=== PATIENT | female | born 1945 | race Caucasian/White ===

== ENCOUNTER 2018-07-31 12:49 | Emergency (ER) | payer OTHER ==
[~2018-07-31] VITALS: Ht 165.1 cm; Wt 88.0 kg
[~2018-07-31 12:49] MED LIST: ALEVE220 MG PO; ASPIRIN325 MG PO; AZITHROMYCIN250 MG PO; COCONUT OIL1000 MG PO; ETODOLAC500 MG PO; FENOFIBRATE145 MG PO; FISH OIL 1,0001 EAC2 PO; HEMOCYTE PLUS1 EACH; LEVOTHYROXINE125 MCG PO; LOVASTATIN20 MG PO; METFORMIN HCL500 MG PO; MONTELUKAST SOD10 MG PO; NAPROXEN250 MG PO; NORCO 10-325 T1 EACH PO; OMEPRAZOLE40 MG PO
--- OUTSIDE RECORDS SUMMARY | 2018-07-31 13:57 | XMS REPORT ---
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 Allergies, Adverse Reactions, Alerts This patient has no known allergies or adverse reactions. Medications This patient has no known medications. Results Test Description Test Time Test Comments Text Results Atomic Results Result Comments SCR MAMM BILATERAL NOEMI CAD DIGITAL 2018-07-04 13:38:10 - SCR MAMM BILATERAL NEOMI CAD DIGITALBILATERAL DIGITAL SCREENING MAMMOGRAM 3D/2D WITH CAD: 07/04/2018CLINICAL: Asymptomatic. Digital breast tomosynthesis was performed in addition to routine CC and MLO views. Current mammographic images were evaluated by either a [employer] M-Vu or a [employer] ImageChecker CAD (computer aided detection system). Comparison is made to exams dated 03/14/2017 mammogram, 12/14 mammogram, and 12/02/2014 mammogram - [facility]. The tissue of both breasts is predominantly fatty. No suspicious mass, architectural distortion, malignant type calcification, or lymph node abnormality detected. Breast architecture is stable compared to prior exams.IMPRESSION: NEGATIVEThere is no mammographic evidence of malignancy. Resume annual screening mammography in one year. Alok Thapa M.D. qn/penrad:07/04/2018 13:38:10 Manager Data Center: [place], [facility] sent: BIRADS 1-2 Normal Mammogram BI-RADS: 1 Negative CHEST [address] [address] Patient Name: TANYA WILSON MR #: [id number] : 1945 Age/Sex: 71/F Req #: [id number] Adm Physician: Ordered by: PING VERGARA DPM Report #: [id number] Location: OR Room/Bed: Procedure: [id number] DX/CHEST 2 VIEWS Exam Date: 01/14/17 Exam Time: 1600 REPORT STATUS: Signed PROCEDURE: X-RAY CHEST, TWO VIEWS COMPARISON: None. INDICATIONS: PRE OP FINDINGS: Lungs are well-inflated. No focal consolidation, pleural effusion, or pneumothorax. Biapical pleural-parenchymal scar. Post surgical changes of the mediastinum including median sternotomy wires and mediastinal surgical clips. Enlargement of the cardiac silhouette without vascular decompensation. No acute osseous abnormality. Multilevel degenerative disc changes of the thoracic spine. CONCLUSION: Cardiomegaly without vascular decompensation. Dictated by: Kiley Hills M.D. on 01/14/2017 at 17:35 Electronically approved by: Kiley Hills M.D. on 01/14/2017 at 17:35 Dictated By: KILEY HILLS MD [id number] Transcribed By: JUAN R on 01/14/17 1735 COPY TO: PING VERGARA DPM
[2018-07-31] MEDS ORDERED: TETANUS/DIPHTHERIA TOX ADULT 0.5 ML SYR IM ONE (14:30)
--- NOTE | 2018-07-31 15:00 | NUR ---
PT TO ER ROOM 7 AT THIS TIME, ASSUMED CARE AT THIS TIME.
--- NOTE | 2018-07-31 15:52 | Diagnostic Imaging Report ---
Exam: Forearm 2 views History: Pain Comparison: None. Findings: Intraarticular fracture of the distal radius predominantly involving the radial styloid. Soft tissue swelling. Advanced arthropathy of the first CMC and triscaphe joint. Impression: Intra-articular fracture of the distal radius Signed by: Dr. Jas Roberts M.D. on 07/31/2018 3:48 PM
--- NOTE | 2018-07-31 16:20 | Diagnostic Imaging Report ---
Complete set of images made available for interpretation on 07/31/2018 at 4:10 PM. EXAMINATION: Head and cervical spine CT without contrast. HISTORY: Status post fall this morning, trauma. COMPARISON: None. TECHNIQUE: Multidetector axial images were obtained without contrast from the foramen magnum to the vertex and through the cervical spine. The images were reconstructed using brain and bone algorithms. Thin section brain images were reformatted into coronal and sagittal planes. Dose modulation, iterative reconstruction, and/or weight based adjustment of the mA/kV was utilized to reduce the radiation dose to as low as reasonably achievable. HEAD CT FINDINGS: Skull/difficult/: No lytic or blastic lesions. No fractures. Parenchyma: Normal. No mass, hemorrhage or CT evidence of acute vascular insult. Brain volume: Normal for age. Ventricles: No hydrocephalus or displacement. Arteries: No density suggestive of thrombus. Dural sinuses: No abnormal density. Extra-axial spaces: No abnormal density. Incidentally noted approximately 3.4 cm transverse x 1.5 cm AP diameter well-circumscribed benign-appearing arachnoid cyst posterior to the right occipital lobe without associated significant mass effect or abnormal density in the brain parenchyma. Foramen magnum: No mass, Chiari malformation, or basilar invagination. Sella: No obvious mass. FACE CT FINDINGS: Bones: Severe atrophy of the maxilla due to edentulism. Facial soft tissues: No acute abnormalities Paranasal sinuses and drainage pathways: The frontal, ethmoidal, sphenoid and maxillary sinuses are clear. The ostiomeatal units, fronto-nasal and spheno-ethmoidal recesses are clear. Orbits contents: Minimal scleral calcification along the posterior globes. Nasal septum: Midline. Anatomic variations: No significant anatomic variations. CERVICAL SPINE CT FINDINGS: Alignment:Reversal of the cervical lordosis with kyphotic malalignment from C3 to C5. Minimal anterolisthesis at C2-C3. S-shaped scoliosis. Soft tissues: Normal. Vertebrae: Normal height and density. No acute fracture, infection or neoplasm. Chronic endplate degenerative changes from C3 to C7. Degenerative changes: C1-C2: Normal C2-C3: Prominent facet arthrosis on the left without significant stenosis. C3-C4: Asymmetric to the right disc osteophyte complex formation is, bilateral uncovertebral and facet arthrosis. Severe right and mild left foraminal stenosis. C4-C5: Asymmetric to the right disc osteophyte complex formation, uncovertebral and facet arthrosis. Severe right and moderate left foraminal stenosis. Mild canal stenosis. C5-C6: Asymmetric to the right disc osteophyte formation, uncovertebral and facet arthrosis. Severe right and moderate left foraminal stenosis. Moderate canal stenosis. C6-C7: There is costophrenic reformation, bilateral uncovertebral and facet arthrosis. Moderate spinal canal and bilateral foraminal stenosis. C7-T1: Prominent facet arthrosis without significant stenosis. Incidental findings: Partially visualized pleural-parenchymal scarring mainly in the right lung apex. IMPRESSION: Head CT: No acute posttraumatic intracranial abnormalities, particularly no hemorrhage. Face CT: No acute facial fractures. Cervical spine CT: 1. No acute fractures or dislocations. 2. Chronic degenerative changes as described. Note: Acute post traumatic spinal cord, vascular or ligamentous injury cannot adequately be assessed with CT. Signed by: Dr. Isabel Tillman M.D. on 07/31/2018 4:16 PM
== END 2018-07-31 18:32 | disposition home or self-care (01) ==
LOC: ER 12:49
DX: S00.83XA Contusion of other part of head, initial encounter (principal); S52.571A Other intraarticular fracture of lower end of right radius, initial encounter for closed fracture; S00.31XA Abrasion of nose, initial encounter; W01.0XXA Fall on same level from slipping, tripping and stumbling without subsequent striking against object, initial encounter; Y92.008 Other place in unspecified non-institutional (private) residence as the place of occurrence of the external cause
CPT/HCPCS: 70450; 70486; 72125; 90471; 90714; 99284

== ENCOUNTER 2019-12-01 14:24 | Emergency (ER) | payer OTHER ==
[~2019-12-01] VITALS: Ht 165.1 cm; Wt 88.0 kg
--- NOTE | 2019-12-01 14:50 | Emergency Department Note ---
History of Present Illnes History of Present Illness Chief Complaint: General Medicine Complaints History of Present Illness This is a 74 year old female Chief Complaint Comment BACK PAIN AND PAIN WTIH URINATION. PT WALKS WITH WALKER. E COLI IN THE URINE; PLACED ON CIPRO AND SWITCHED YESTERDAY TO BACTRIM. PT AWAKE/ALERT. DECREASED URINE OUTPT. BP 180/116'S; POTASSIUM RAN HIGH ON LAST LABS AND TSH HIGH. Historian: Patient, Family Member Arrival Mode: Car Secondary English Teacher Required: No Onset (how long ago): week(s) (1) Location: All over Quality: Doesn't feel well Radiation: Reports other (All over) Severity: mild Onset quality: gradual Duration (how long): week(s) (1) Timing of current episode: constant Progression: unchanged Chronicity: new Context: Reports recent illness (UTI) Relieving factors: none Exacerbating factors: none Associated symptoms: Reports denies other symptoms Treatments prior to arrival: none Past Medical/Family History Physician Review I have reviewed the patient's past medical and family history. Any updates have been documented here. Past Medical History Recent Fever: No Clinical Suspicion of Infectio: No New/Unexplained Change in Ment: No Past Medical History: Diabetes, Hypothyroidism, CAD, GERD, Hyperlipedemia Other Medical History: hyperlipidemia Past Surgical History: Appendectomy, CABG, T&A, Tubal Ligation Other Surgery: AMPUTATED L 4TH AND 5TH TOES 01/18/2017 right knee TRIPPLE BYPASS Other Last Tetanus: UNKNOWN Review of Systems Review of Systems Constitutional: Reports no symptoms, Reports other ("Feels like shit") EENTM: Reports no symptoms Cardiovascular: Reports no symptoms, Reports edema (BLE) Respiratory: Reports no symptoms Gastrointestinal: Reports no symptoms Genitourinary: Reports as per HPI, Reports frequency Musculoskeletal: Reports no symptoms Integumentary: Reports no symptoms Neurological: Reports no symptoms Psychological: Reports no symptoms Endocrine: Reports no symptoms Hematological/Lymphatic: Reports no symptoms Physical Exam Related Data Allergies: Coded Allergies: Penicillins (Verified Allergy, Unknown, UNKNOWN, 03/20/10) erythromycin base (Verified Allergy, Unknown, UNKNOWN, 03/20/10) Triage Vital Signs Vital Signs Date Time Temp Pulse Resp B/P (MAP) Pulse Ox O2 Delivery O2 Flow Rate FiO2 12/01/19 14:36 98.4 96 16 172/84 98 Room Air Vital signs reviewed: Yes Physical Exam CONSTITUTIONAL Constitutional: Present well-developed, Present well-nourished HENT HENT: Present normocephalic, Present atraumatic, Present oropharynx clear/moist, Present nose normal HENT L/R: Present left ext ear normal, Present right ext ear normal EYES Eyes: Reports PERRL, Reports conjunctivae normal NECK Neck: Present ROM normal PULMONARY Pulmonary: Present effort normal, Present breath sounds normal CARDIOVASCULAR Cardiovascular: Present regular rhythm, Present heart sounds normal, Present capillary refill normal, Present normal rate GASTROINTESTINAL Abdominal: Present soft, Present nontender, Present bowel sounds normal GENITOURINARY Genitourinary: Present exam deferred SKIN Skin: Present warm, Present dry MUSCULOSKELETAL Musculoskeletal: Present ROM normal NEUROLOGICAL Neurological: Present alert, Present oriented x 3, Present no gross motor or sensory deficits PSYCHOLOGICAL Psychological: Present mood/affect normal, Present judgement normal Procedures 12 Lead ECG Interpretation ECG Interpretation : Secondary English Teacher: Interpreted by ED physician Date: Dec 02, 2019 Rhythm: atrial fibrillation Rate: normal BPM: 99 QRS axis: normal ST segments normal: Yes T waves normal: Yes Clinical Impression: dysrhythmia - atrial Assessment & Plan Medical Decision Making MDM 74-year-old female with a recent urinary tract infection presents for evaluation of multiple things including electrolytes and thyroid as well as urinary tract infection. Patient was told to come to the emergency department by Dr. Whalen's office. Examination shows overall well-appearing 74 year old female in no acute distress. Vital signs stable, within acceptable limits. Workup shows urinary tract infection. I discussed the patient with Dr. Whalen and he prefers to continue outpatient treatment of her urinary tract infection and follow-up in clinic. At this time patient will not require admission and no signs to suggest sepsis or end organ dysfunction. Patient is appropriate for discharge. Will hold on anticoagulation for a-fib given current infection likely causing and unknown start of a-fib. Decision to anticoagulate deferred to primary doctor at follow up appointment due to moderate risk of bleeding. Reassessment Reassessment time: 16:36 Reassessment Well appearing, NAD Assessment & Plan Final Impression: (1) UTI (urinary tract infection) Depart Disposition: HOME, SELF-CARE Last Vital Signs Date Time Temp Pulse Resp B/P (MAP) Pulse Ox O2 Delivery O2 Flow Rate FiO2 12/01/19 14:36 98.4 96 16 172/84 98 Room Air Home Meds Reported Medications Fe Fumarate/Fa/Mv, Min Comb#15 (HEMOCYTE PLUS CAPSULE) 1 Each Capsule, TID 01/19/17 Hydrocodone Bit/Acetaminophen (NORCO 10-325 TABLET) 1 Each Tablet, 1 TAB PO Q4HR PRN for PAIN 01/18/17 Azithromycin (Z-TREVIN) 250 Mg Tablet, 250 MG PO DAILY, #1 UDPKT Z-Pack 01/18/17 Naproxen (NAPROXEN) 250 Mg Tablet, 500 MG PO BIDWM PRN for PAIN, TAB 01/18/17 Montelukast Sodium (MONTELUKAST SODIUM) 10 Mg Tablet, 10 MG PO DAILY, #30 TAB 05/15/16 Lovastatin (LOVASTATIN) 20 Mg Tablet, 20 MG PO DAILY 05/15/16 Levothyroxine Sodium (LEVOTHYROXINE SODIUM) 125 Mcg Tablet, 125 MCG PO DAILY 05/15/16 Fenofibrate Nanocrystallized (FENOFIBRATE) 145 Mg Tablet, 160 MG PO DAILY 05/15/16 Metformin Hcl (METFORMIN HCL) 500 Mg Tablet, 1000 MG PO BID, #60 TAB 05/15/16 Omeprazole (OMEPRAZOLE) 40 Mg Capsule.dr, 40 MG PO DAILY 05/15/16 Etodolac (ETODOLAC) 500 Mg Tablet, 500 MG PO DAILY 05/15/16 Coconut Oil (COCONUT OIL) 1,000 Mg Capsule, 1000 MG PO DAILY 05/15/16 Lucan-3 Fatty Acids/Fish Oil (FISH OIL 1,000 MG CAPSULE) 1 Each Capsule, 1000 MG PO DAILY 05/15/16 FADIA WEISS MD Dec 01, 2019 14:50
[2019-12-01 15:04] LABS: BASOPHILS % 0.4 % (0.0-1.0); EOSINOPHILS % 0.3 % (0.0-6.0); HEMATOCRIT 36.4 % (34.2-44.1); HEMOGLOBIN 10.5 g/dL (12.0-16.0); LYMPHOCYTES # (AUTO) 1.4 (1.0-3.2); LYMPHOCYTES % 12.2 % (18.0-39.1); MEAN CORPUSCULAR HEMOGLOBIN 23.4 pg (28-32); MEAN CORPUSCULAR HGB CONC 28.8 g/dL (31-35); MEAN CORPUSCULAR VOLUME 81.1 fL (81-99); MONOCYTES # (AUTO) 0.7 (0.2-0.8); NEUTROPHILS % 80.3 % (38.7-80.0); PLATELET COUNT 583 x10e3/uL (140-360); RED BLOOD COUNT 4.49 x10e6/uL (3.6-5.1); RED CELL DISTRIBUTION WIDTH 17.9 % (11.7-14.4)
[2019-12-01 15:30] LABS: ALBUMIN 3.7 g/dL (3.5-5.0); ALBUMIN/GLOBULIN RATIO 0.9 (0.8-2.0); ANION GAP 18.6 mmol/L (8-16); CALCIUM 10.3 mg/dL (8.4-10.2); CREATININE, SERUM 1.19 mg/dL (0.57-1.11); POTASSIUM 4.6 mmol/L (3.5-5.1)
[2019-12-01 15:46] LABS: THYROID STIMULATING HORMONE 3.056 uIU/mL (0.350-4.940)
--- NOTE | 2019-12-01 16:07 | NUR ---
straight cath for a urine
--- OUTSIDE RECORDS SUMMARY | 2019-12-01 16:15 | XMS REPORT | Continuity of Care Document ---
Author Author [facility] Organization [facility] Address [address] [place] [address] Phone Unavailable Care Team Providers [employer] Teacher Name Role Phone Fran NEUMANN MD PCP Fran KING Attphys Unavailable PING VERGARA Attphys Unavailable Payers Payer Name Policy Type Policy Number Effective Date Expiration Date Fran Cummings [id number] 2018 00:00:00 [facility] Problems Condition Name Condition Details Condition Category Status Onset Date Resolution Date Last Treatment Date Treating Clinician Comments Source Postoperative hemorrhage from incision Postoperative bleedin g from incision Problem Active [facility] Allergies, Adverse Reactions, Alerts Allergy Name Allergy Type Status Severity Reaction(s) Onset Date Inacti ve Date Treating Clinician Comments Source Penicillin Allergy to Substance Active UNKNOWN 2010-03-20 00:00:00 [facility] Erythromycin base Allergy to Substance Active UNKNOWN 00:00:00 [facility] Medications Ordered Medication Name Filled Medication Name Start Date Stop Da te Current Medication? Ordering Clinician Indication Dosage Frequency Signature (SIG) Comments Components Source Azithromycin (Z-Milo) 250 Mg Tablet Azithromycin (Z-Milo) 250 Mg Tablet Yes 250 Daily [facility] Coconut Oil 1,000 Mg Capsule Coconut Oil 1,000 Mg Capsule Y es 1000 Daily [facility] Etodolac 500 Mg Tablet Etodolac 500 Mg Tablet Yes 500 Daily [facility] Fe Fumarate/Fa/Mv, Min Comb#15 (Hemocyte Plus Capsule) 1 Each Capsule Fe Fumarate/Fa/Mv, Min Comb#15 (Hemocyte Plus Capsule) 1 Each Capsule Yes Three Times A Day [facility] Fenofibrate Nanocrystallized (Fenofibrate) 145 Mg Tabl et Fenofibrate Nanocrystallized (Fenofibrate) 145 Mg Tablet Yes 160 Daily [facility] Hydrocodone Bit/Acetaminophen (Kermit 10-325 Tablet) 1 Each Tablet Hydrocodone Bit/Acetaminophen (Kermit 10-325 Tablet) 1 Each Tablet Yes 1 Every 4 Hours as needed for Pain [facility] Levothyroxine Sodium 125 Mcg Tablet Levothyroxine Sodium 125 Mcg Tabl et Yes 125 Daily [facility] Lovastatin 20 Mg Tablet Lovastatin 20 Mg Tablet Yes 20 Daily [facility] Metformin Hcl 500 Mg Tablet Metformin Hcl 500 Mg Tablet Yes 1000 Twice A Day [facility] Montelukast Sodium 10 Mg Tablet Montelukast Sodium 10 Mg Tablet Yes 10 Daily [facility] Naproxen 250 Mg Tablet Naproxen 250 Mg Tablet Yes 500 Twice Daily With Meals as needed for Pain [facility] El[place]-3 Fatty Acids/Fish Oil (Fish Oil 1,000 Mg Capsul e) 1 Each Capsule [place]-3 Fatty Acids/Fish Oil (Fish Oil 1,000 Mg Capsule) 1 Each Capsule Yes 1000 Daily [facility] Omeprazole 40 Mg Capsule. Omeprazole 40 Mg Capsule. Yes 40 Daily [facility] Aspirin 325 Mg Tablet, 325 Mg Oral Aspirin 325 Mg Tablet, 325 Mg Oral 2017-01-19 00:00:00 No 325 Daily [facility] Procedures Procedure Date / Time Performed Performing Clinician [facility] e Computed tomography of brain without radiopaque contrast 201 [facility] maxillofacial area wo contrast 2018-07-31 00:00:00 FERNANDODEVENDRA [facility] Computed tomography of cervical spine without contrast 07-31 00:00:00 [facility] Encounters Start Date/Time End Date/Time En[facility] ID Source 2018-07-31 12:49:00 2018-07-31 18:32:00 Departed Emergency Room 1 AIYANA KING [facility] [id number] [facility] Results Test Description Test Time Test Comments Results Result Comments Source CT CERVICAL SPINE WO 2018-07-31 16:04:00 [facility] [address] [address] Patient Name: YULI CALERO MR #: [id number] : 1945 Age/Sex: 72/F Req #: [id number] Adm Physician: Ordered by: AIYANA KING MD Report #: [id number] Location: ER Room/Bed: Procedure: [id number] CT/CT CERVICAL SPINE WO Exam Date: 07/31/18 Exam Time: 1420 REPORT STATUS: Signed Complete set of images made available for interpretation on 07/31/2018 at 4:10 PM. EXAMINATION: Head and cervical spine CT without contrast. HISTORY: Status post fall this morning, trauma. COMPARISON: None. TECHNIQUE: Multidetector axial images were obtained without contrast from the foramen magnum to the vertex and through the cervical spine. The images were reconstructed using brain and bone algorithms. Thin section brain images were reformatted into coronal and sagittal planes. Dose modulation, iterative reconstruction, and/or weight based adjustment of the mA/kV was utilized to reduce the radiation dose to as low as reasonably achievable. HEAD CT FINDINGS: Skull/difficult/: No lytic or blastic lesions. No fractures. Parenchyma: Normal. No mass, hemorrhage or CT evidence of acute vascular i nsult. Brain volume: Normal for age. Ventricles: No hydrocephalus or displacement. Arteries: No density suggestive of thrombus. Dural sinuses: No abnormal density. Extra-axial spaces: No abnormal density. Incidentally noted approximately 3.4 cm transverse x 1.5 cm AP diameter well-circumscribed benign-appearing arachnoid cyst posterior to the right occipital lobe without associated significant mass effect or abnormal density in the brain parenchyma. Foramen magnum: No mass, Chiari malformation, or basilar invagination. Sella: No obvious mass. FACE CT FINDINGS: Bones: Severe atrophy of the maxilla due to edentulism. Facial soft tissues: No acute abnormalities Paranasal sinuses and drainage pathways: The frontal, ethmoidal, sphenoid and maxillary sinuses are clear. The ostiomeatal units, fronto-nasal and spheno- ethmoidal recesses are clear. Orbits contents: Minimal scleral calcification along the posterior globes. Nasal septum: Midline. Anatomic variations: No significant anatomic variations. CERVICAL SPINE CT FINDINGS: Alignment:Reversal of the cervical lordosis with kyphotic malalignment from C3 to C5. Minimal anterolisthesis at C2-C3. S- shaped scoliosis. Soft tissues: Normal. Vertebrae: Normal height and density. No acute fracture, infection or neoplasm. Chronic endplate degenerative changes from C3 to C7. Degenerative changes: C1-C2: Normal C2-C3: Prominent facet arthrosis on the left without significant stenosis. C3-C4: Asymmetric to the right disc osteophyte complex formation is, bilateral uncovertebral and facet arthrosis. Severe right and mild left foraminal stenosis. C4-C5: Asymmetric to the right disc osteophyte complex formation, uncovertebral and facet arthrosis. Severe right and moderate left foraminal stenosis. Mild canal stenosis. C5-C6: Asymmetric to the right disc osteophyte formation, uncovertebral and facet arthrosis. Severe right and moderate left foraminal stenosis. Moderate canal stenosis. C6-C7: There is costophrenic reformation, bilateral uncovertebral and facet arthrosis. Moderate spinal canal and bilateral foraminal stenosis. C7-T1: Prominent facet arthrosis without significant stenosis. Incidental findings: Partially visualized pleural-parenchymal scarring mainly in the right lung apex. IMPRESSION: Head CT: No acute posttraumatic intracranial abnormalities, particularly no hemorrhage. Face CT: No acute facial fractures. Cervical spine CT: 1. No acute fractures or dislocations. 2. Chronic degenerative changes as described. Note: Acute post traumatic spinal cord, vascular or ligamentous injury cannot adequately be assessed with CT. Signed by: Dr. Katharina Tillman M.D. on 07/31/2018 4:16 PM Dictated By: KATHARINA TILLMAN MD 15 Transcribed By: MICHELLE on 07/31/181615 COPY TO: AIYANA KING MD CT MAXIO FAC/PARANAS WO 2018-07-31 16:04:[address] [address] Patient Name: YULI CALERO MR #: [id number] : 1945 Age/Sex: 72/F Req #: [id number] Adm Physician: Ordered by: AIYANA KING MD Report #: [id number] Location: ER Room/Bed: Procedure: [id number] CT/CT MAXIO FAC/PARANAS WO Exam Date: 07/31/18 Exam Time: 1422 REPORT STATUS: Signed Complete set of images made available for interpretation on 07/31/2018 at 4:10 PM. EXAMINATION: Head and cervical spine CT without contrast. HISTORY: Status post fall this morning, trauma. COMPARISON: None. TECHNIQUE: Multidetector axial images were obtained without contrast from the foramen magnum to the vertex and through the cervical spine. The images were reconstructed using brain and bone algorithms. Thin section brain images were reformatted into coronal and sagittal planes. Dose modulation, iterative reconstruction, and/or weight based adjustment of the mA/kV was utilized to reduce the radiation dose to as low as reasonably achievable. HEAD CT FINDINGS: Skull/difficult/: No lytic or blastic lesions. No fractures. Parenchyma: Normal. No mass, hemorrhage or CT evidence of acute vascular insult. Brain volume: Normal for age. Ventricles: No hydrocephalus or displacement. Arteries: No density suggestive of thrombus. Dural sinuses: No abnormal density. Extra-axial spaces: No abnormal density. Incidentally noted approximately 3.4 cm transverse x 1.5 cm AP diameter well-circumscribed benign-appearing arachnoid cyst posterior to the right occipital lobe without associated significant mass effect or abnormal density in the brain parenchyma. Foramen magnum: No mass, Chiari malformation, or basilar invagination. Sella: No obvious mass. FACE CT FINDINGS: Bones: Severe atrophy of the maxilla due to edentulism. Facial soft tissues: No acute abnormalities Paranasal sinuses and drainage pathways: The frontal, ethmoidal, sphenoid and maxillary sinuses are clear. The ostiomeatal units, fronto-nasal and spheno- ethmoidal recesses are clear. Orbits contents: Minimal scleral calcification along the posterior globes. Nasal septum: Midline. Anatomic variations: No significant anatomic variations. CERVICAL SPINE CT FINDINGS: Alignment:Reversal of the cervical lordosis with kyphotic malalignment from C3 to C5. Minimal anterolisthesis at C2-C3. S- shaped scoliosis. Soft tissues: Normal. Vertebrae: Normal height and density. No acute fracture, infection or neoplasm. Chronic endplate degenerative changes from C3 to C7. Degenerative changes: C1-C2: Normal C2-C3: Prominent facet arthrosis on the left without significant stenosis. C3-C4: Asymmetric to the right disc osteophyte complex formation is, bilateral uncovertebral and facet arthrosis. Severe right and mild left foraminal stenosis. C4-C5: Asymmetric to the right disc osteophyte complex formation, uncovertebral and facet arthrosis. Severe right and moderate left foraminal stenosis. Mild canal stenosis. C5-C6: Asymmetric to the right disc osteophyte formation, uncovertebral and facet arthrosis. Severe right and moderate left foraminal stenosis. Moderate canal stenosis. C6-C7: There is costophrenic reformation, bilateral uncovertebral and facet arthrosis. Moderate spinal canal and bilateral foraminal stenosis. C7-T1: Prominent facet arthrosis without significant stenosis. Incidental findings: Partially visualized pleural-parenchymal scarring mainly in the right lung apex. IMPRESSION: Head CT: No acute posttraumatic intracranial abnormalities, particularly no hemorrhage. Face CT: No acute facial fractures. Cervical spine CT: 1. No acute fractures or dislocations. 2. Chronic degenerative changes as described. Note: Acute post traumatic spinal cord, vascular or ligamentous injury cannot adequately be assessed with CT. Signed by: Dr. Katharina Tillman M.D. on 07/31/2018 4:16 PM Dictated By: KATHARINA TILLMAN MD 15 Transcribed By: MICHELLE on 07/31/181615 COPY TO: AIYANA KING MD CT BRAIN WO 2018-07-31 16:04:00 [address] [address] Patient Name: YULI CALERO MR #: [id number] : 1945 Age/Sex: 72/F Req #: [id number] Adm Physician: Ordered by: AIYANA KING MD Report #: [id number] Location: ER Room/Bed: Procedure: [id number] CT/CT BRAIN WO Exam Date: 07/31/18 Exam Time: 1422 REPORT STATUS: Signed Complete set of images made available for interpretation on 07/31/2018 at 4:10 PM. EXAMINATION: Head and cervical spine CT without contrast. HISTORY: Status post fall this morning, trauma. COMPARISON: None. TECHNIQUE: Multidetector axial images were obtained without contrast from the foramen magnum to the vertex and through the cervical spine. The images were reconstructed using brain and bone algorithms. Thin section brain images were reformatted into coronal and sagittal planes. Dose modulation, iterative reconstruction, and/or weight based adjustment of the mA/kV was utilized to reduce the radiation dose to as low as reasonably achievable. HEAD CT FINDINGS: Skull/difficult/: No lytic or blastic lesions. No fractures. Parenchyma: Normal. No mass, hemorrhage or CT evidence of acute vascular insult. Brain volume: Normal for age. Ventricles: No hydrocephalus or displacement. Arteries: No density suggestive of thrombus. Dural sinuses: No abnormal density. Extra-axial spaces: No abnormal density. Incidentally noted approximately 3.4 cm transverse x 1.5 cm AP diameter well-circumscribed benign-appearing arachnoid cyst posterior to the right occipital lobe without associated significant mass effect or abnormal density in the brain parenchyma. Foramen magnum: No mass, Chiari malformation, or basilar invagination. Sella: No obvious mass. FACE CT FINDINGS: Bones: Severe atrophy of the maxilla due to edentulism. Facial soft tissues: No acute abnormalities Paranasal sinuses and drainage pathways: The frontal, ethmoidal, sphenoid and maxillary sinuses are clear. The ostiomeatal units, fronto-nasal and spheno- ethmoidal recesses are clear. Orbits contents: Minimal scleral calcification along the posterior globes. Nasal septum: Midline. Anatomic variations: No significant anatomic variations. CERVICAL SPINE CT FINDINGS: Alignment:Reversal of the cervical lordosis with ky photic malalignment from C3 to C5. Minimal anterolisthesis at C2-C3. S-shaped scoliosis. Soft tissues: Normal. Vertebrae: Normal height and density. No acute fracture, infection or neoplasm. Chronic endplate degenerative changes from C3 to C7. Degenerative changes: C1-C2: Normal C2-C3: Prominent facet arthrosis on the left without significant stenosis. C3-C4: Asymmetric to the right disc osteophyte complex formation is, bilateral uncovertebral and facet arthrosis. Severe right and mild left foraminal stenosis. C4-C5: Asymmetric to the right disc osteophyte complex formation, uncovertebral and facet arthrosis. Severe right and moderate left foraminal stenosis. Mild canal stenosis. C5-C6: Asymmetric to the right disc osteophyte formation, uncovertebral and facet arthrosis. Severe right and moderate left foraminal stenosis. Moderate canal stenosis. C6-C7: There is costophrenic reformation, bilateral uncovertebral and facet arthrosis. Moderate spinal canal and bilateral foraminal stenosis. C7-T1: Prominent facet arthrosis without significant stenosis. Incidental findings: Partially visualized pleural-parenchymal scarring mainly in the right lung apex. IMPRESSION: Head CT: No acute posttraumatic intracranial abnormalities, particularly no hemorrhage. Face CT: No acute facial fractures. Cervical spine CT: 1. No acute fractures or dislocations. 2. Chronic degenerative changes as described. Note: Acute post traumatic spinal cord, vascular or ligamentous injury cannot adequately be assessed with CT. Signed by: Dr. Katharina Tillman M.D. on 07/31/2018 4:16 PM Dictated By: KATHARINA TILLMAN MD Transcribed By: MICHELLE on 07/31/181615 COPY TO: AIYANA KING MD FOREARM RIGHT 2 VIEW 2018-07-31 15:47:00 [address] [address] Patient Name: YULI CALERO MR #: [id number] : 1945 Age/Sex: 72/F Req #: [id number] Adm Physician: Ordered by: AIYANA KING MD Report #: [id number] Location: ER Room/Bed: Procedure: [id number] DX/FOREARM RIGHT 2 VIEW Exam Date: 07/31/18 Exam Time: 1400 REPORT STATUS: Signed Exam: Forearm 2 views History: Pain Comparison: None. Findings: Intraarticular fracture of the distal radius predominantly involving the radial styloid. Soft tissue swelling. Advanced arthropathy of the first CMC and triscaphe joint. Impression: Intra-articular fracture of the distal radius Signed by: Dr. Dhruv Rhoades M.D. on 07/31/2018 3:48 PM Dictated By: DHRUV RHOADES MD 1548 Transcribed By: MICHELLE on 07/31/18 154 COPY TO: AIYANA KING MD SCR MAMM BILATERAL NOEMI CAD DIGITAL 2018-07-04 13:38:10 - SCR MAMM BILATERAL NOEMI CAD DIGITALBILATERAL DIGITAL SCREENING MAMMOGRAM 3D/2D WITH CAD: 07/04/2018CLINICAL: Asymptomatic. Digital breast tomosynthesis was performed in addition to routine CC and MLO views. Current mammographic images were evaluated by either a [employer] M-Vu or a [employer] ImageChecker CAD (computer aided detection system). Comparison is made to exams dated 03/14/2017 mammogram, 12/14 mammogram, and 12/02/2014 mammogram - [facility]-. The tissue of both breasts is predominantly fatty. No suspicious mass, architectural distortion, malignant type calcification, or lymph node abnormality detected. Breast architecture is stable compared to prior exams.IMPRESSION: NEGATIVEThere is no mammographic evidence of malignancy. Resume annual screening mammography in one year. Alok jenkins/penrad:07/04/2018 13:38:10 Studio Designer: Blanka [place], [facility]-letter sent: BIRADS 1-2 Normal Mammogram BI-RADS: 1 Negative CHEST 2 VIEWS [address] [address] Patient Name: YULI CALERO MR #: [id number] : 1945 Age/Sex: 71/F Req #: [id number] Adm Physician: Ordered by: PING VERGARA DPCatherine Report #: [id number] Location: OR Room/Bed: Procedure: [id number] DX/CHEST 2 VIEWS Exam Date: 01/14/17 Exam [...] MD 1735 Transcribed By: JUAN R on 01/14/178 COPY TO: PING VERGARA DPM
[2019-12-01 16:28] LABS: CLARITY,URINE CLOUDY (CLEAR); COLOR,URINE YELLOW (YELLOW)
[2019-12-01 16:29] LABS: BILIRUBIN,URINE NEGATIVE (NEGATIVE); KETONES,URINE NEGATIVE (NEGATIVE); LEUKOCYTE ESTERASE ,URINE 1+ (NEGATIVE); NITRITE,URINE POSITIVE (NEGATIVE); PROTEIN,URINE DIPSTICK 1+ (NEGATIVE); URINE UROBILINOGEN 0.2 mg/dL (0.2 - 1)
[2019-12-01 16:38] LABS: BACTERIA,URINE MANY /HPF; EPITHELIAL CELLS,URINE FEW /LPF; WBC,URINE (MAN) >50 /HPF (0-5)
--- NOTE | 2019-12-01 16:49 | Diagnostic Imaging Report ---
EXAMINATION: CHEST 2 VIEWS INDICATION: Sepsis COMPARISON: None FINDINGS: LINES/TUBES:EKG leads overlie the chest. LUNGS:The lungs are well-inflated. No focal consolidation or pulmonary edema. PLEURA:No pleural effusion or pneumothorax. MEDIASTINUM:The cardiomediastinal silhouette appears normal in size and shape. Postoperative findings of prior CABG. BONES/SOFT TISSUES:No acute osseous injury. ABDOMEN:No free air under the diaphragm. IMPRESSION: Cardiomegaly and mild pulmonary vascular congestion. No focal pneumonia. Signed by: Samir Christy MD on 12/01/2019 4:45 PM
== END 2019-12-01 19:30 | disposition home or self-care (01) ==
LOC: ER 14:36
DX: N39.0 Urinary tract infection, site not specified (principal); M54.5 Low back pain; E11.9 Type 2 diabetes mellitus without complications; E78.5 Hyperlipidemia, unspecified; E03.9 Hypothyroidism, unspecified; I25.10 Atherosclerotic heart disease of native coronary artery without angina pectoris; K21.9 Gastro-esophageal reflux disease without esophagitis; Z95.1 Presence of aortocoronary bypass graft
CPT/HCPCS: 36415; 71046; 80053; 81001; 83605; 83880; 84436; 84443; 84479; 84484; 85025; 87040; 87086; 87186; 93005; 99284

== ENCOUNTER → 2020-02-10 | Outpatient (CLI) | payer MEDICARE ==
--- NOTE | 2020-02-10 13:26 | Diagnostic Imaging Report ---
EXAM: ABDOMEN-1VIEW (KUB) DATE: 02/10/2020 12:20 PM INDICATION: [place] of kidney COMPARISON: None FINDINGS: Left-sided double-J ureter stent identified. There is a 2 cm stone identified at the level of the left renal pelvis. Additional stones identified projecting over the left mid and lower renal shadow measuring up to 8 mm. Calcifications noted projecting over the right mid renal shadow measuring up to 7 mm. Bowel gas pattern appears nonobstructive. Dextroscoliosis and multilevel degenerative changes noted of the visualized spine. No acute osseous abdomen on is identified. IMPRESSION: Bilateral nephrolithiasis with 2 cm stone identified within the left renal pelvis. Double-J ureteral stent noted in place. Signed by: Dr. Shar Rodriguez MD on 02/10/2020 1:23 PM
== END ==
LOC: RAD 12:08
PROVIDERS: ATTEND Urology
DX: N20.0 Calculus of kidney (principal)
CPT/HCPCS: 74018

== ENCOUNTER → 2020-03-09 | Day surgery (SDC) | payer MEDICARE ==
[~2020-03-09] MED LIST changes: +B&O 60MG R/S 60 MG SUPP PR ONE; +BETHANECHOL CHLO1 GM; +COLACE100 MG PO; +FLOMAX0.4 MG PO; +GABAPENTIN100 MG; +GENTAMICIN 80MG/NS 100 ML 200 ML IV ONE; +IOPAMIDOL 300MG/ML 50ML INFUS..BTL IV ONE; +LIDOCAINE HCL 2% LOCAL INJ 5 ML SDV VIAL INJ ONE; +MACROBID 100 M100 MG PO; +ONDANSETRON HCL INJ 2MG/ML 2ML 2 MG/ML VIAL ONE; +PROPOFOL IV EMULSION 10 MG/ML 20 ML VIAL ONE; +SEVOFLURANE INHAL SOLN 250 ML PEN BTL ONE; +ZOLOFT25 MG
[2020-03-09 08:58] LABS: BASOPHILS # (AUTO) 0.1 (0.0-0.1); BASOPHILS % 0.8 % (0.0-1.0); EOSINOPHILS # (AUTO) 0.1 (0.0-0.4); EOSINOPHILS % 0.6 % (0.0-6.0); HEMOGLOBIN 12.8 g/dL (12.0-16.0); LYMPHOCYTES # (AUTO) 1.8 (1.0-3.2); LYMPHOCYTES % 17.2 % (18.0-39.1); MEAN CORPUSCULAR HEMOGLOBIN 24.2 pg (28-32); MEAN CORPUSCULAR HGB CONC 30.5 g/dL (31-35); MEAN CORPUSCULAR VOLUME 79.5 fL (81-99); MONOCYTES # (AUTO) 0.8 (0.2-0.8); MONOCYTES % 7.8 % (4.4-11.3); NEUTROPHILS # (AUTO) 7.5 (2.1-6.9); NEUTROPHILS % 71.9 % (38.7-80.0); PLATELET COUNT 523 x10e3/uL (140-360); RED BLOOD COUNT 5.28 x10e6/uL (3.6-5.1); RED CELL DISTRIBUTION WIDTH 19.9 % (11.7-14.4)
[2020-03-09 09:24] LABS: ANION GAP 15.5 mmol/L (8-16); CALCIUM 11.3 mg/dL (8.4-10.2); CREATININE, SERUM 0.98 mg/dL (0.57-1.11); POTASSIUM 4.5 mmol/L (3.5-5.1)
[2020-03-09 11:40] VITALS: BP 146/85
--- NOTE | 2020-03-09 22:23 | Operative Report ---
DATE OF PROCEDURE: 03/09/2020 SURGEON: Rigo Lopez MD PREOPERATIVE DIAGNOSES: 1. Bilateral nephrolithiasis. 2. Left indwelling ureteral stent. 3. Left hydronephrosis. 4. Potential for right renal colic. 5. Complicated urinary tract infection. 6. Microscopic hematuria. 7. Atrophic (senile) vaginitis. POSTOPERATIVE DIAGNOSES: 1. Bilateral nephrolithiasis. 2. Left indwelling ureteral stent. 3. Left hydronephrosis. 4. Potential for right renal colic. 5. Complicated urinary tract infection. 6. Microscopic hematuria. 7. Atrophic (senile) vaginitis. 8. Left proximal ureterolithiasis. OPERATIONS PERFORMED: Note, these are all staged procedures as part of multi-staged and multi-step process in managing the patient's bilateral nephrolithiasis. 1. Left ureteral extracorporeal shockwave lithotripsy (separate procedure performed for the proximal left ureteral stone). 2. Left renal extracorporeal shockwave lithotripsy (separate procedure performed for the large left kidney stone). 3. Cystourethroscopy with complicated removal of left indwelling ureteral stent (separate for the diagnosis of stent done with separate scope). 4. Cystourethroscopy with left ureteral catheterization and retrograde ureteropyelography (separate procedure performed for hematuria and urinary tract infection). 5. Cystourethroscopy with insertion of left indwelling ureteral stent (separate procedure performed to relieve the hydronephrosis). 6. Cystourethroscopy with right ureteral catheterization and retrograde ureteropyelography (separate procedure performed for the hematuria and urinary tract infection). 7. Cystourethroscopy with insertion of right indwelling ureteral stent (separate procedure performed to prevent renal colic when we fragmented the right nephrolithiasis at a later ESWL). 8. Interpretation of retrograde ureteropyelography. 9. Supervision of fluoroscopy, no radiologist present. 10. Pelvic examination under anesthesia. ANESTHESIA: General. COMPLICATIONS: None. CLINICAL SUMMARY: Tanya Wilson is a 74-year-old woman, who was out of town when she was became ill and she had a left indwelling ureteral stent that was placed when she was admitted for a complicated urinary tract infection and probable urosepsis. The patient also had a Perez catheter that was indwelling. She underwent a urodynamic study yesterday, which revealed that the patient is not in urinary retention, but did have a small capacity overactive bladder. The patient was brought to the operating room today for the above procedures. The family and the patient are aware of the risks of bleeding, infection, injury to adjacent structures, the definite need for additional procedures, the fact that she will have indwelling ureteral stent that requires followup and removal with potential dire consequences of noncompliant. She understood all these risks and elected to proceed. OPERATIVE PROCEDURE IN DETAIL: Informed consent was verified. Tanya Wilson was properly identified, taken to the operating room, placed on the lithotripsy table in supine position. Anesthesia was uneventfully begun. The patient's left proximal ureterolithiasis was localized with biplanar fluoroscopy. A total of approximately 1100 shocks were delivered prior to fragmentation being noted. Once we noted fragmentation, we moved to treating the left nephrolithiasis. We then proceeded with treating left nephrolithiasis with the remainder of the 3000 shocks with fragmentation noted despite the large size of this stone. The patient was carefully and gently repositioned in dorsal lithotomy position with all pressure points were padded. Her genitalia were prepared and draped in usual sterile fashion. The cystoscope sheath with obturator in place was atraumatically inserted into the patient's urethra. The bladder was drained, very cloudy urine. This urine was sent for culture and sensitivity. Panendoscopy of the urinary bladder revealed inflammation with no suspicious lesions and no tumors. The stent was noted to be emerging form left ureteral orifice and was encrusted. A guidewire was then placed alongside the stents and guided to the level of the patient's kidney. The stent was then grasped completely, removed and discarded. Open-ended ureteral catheter was then passed over the guidewire to the level of the patient's kidney. Contrast was injected. The guidewire was replaced. Then with cystoscope and fluoroscopic guidance, a left-sided indwelling ureteral stent was placed. It was coiled in the patient's kidneys as well as the patient's bladder, the retaining suture was cut short. Open-end ureteral catheter was used to cannulate the right ureter and retrograde ureteropyelograms were performed. With cystoscope and fluoroscopic guidance, the right-sided indwelling ureteral stent was then placed, it was coiled in the patient's kidney as well as the patient's bladder. The retaining suture was cut short. Interpretation of retrograde ureteropyelography; contrast was instilled in retrograde bilaterally with left-sided hydronephrosis with numerous filling defect, corresponding to fragmented stones and blood clots. The right side exhibited mild fullness, but no true hydronephrosis. The stone on the right hand side was in the upper pole calyx bilaterally. The stents were in good position, coiled the patient's kidneys as well as the patient's bladder at the end of the case. The patient's bladder was drained. Cystoscope was withdrawn. Pelvic examination under anesthesia revealed atrophic (senile) vaginitis. There was no prolapse. There was inflammation noted consistent with the patient's incontinence. The patient was then uneventfully reversed from anesthesia and taken to recovery room in stable condition. There were no complications of the procedures. She tolerated the procedure well. Estimated blood loss was minimal. We prescribed the patient analgesics, antibiotics, Pyridium and we will return the patient to the operating room for left versus right ESWL in the next several weeks. Rigo Lopez MD [facility]/MODL /[id number] cc: Salina Sung MD
== END | disposition home or self-care (01) ==
LOC: OR 07:25
PROVIDERS: ATTEND Urology
DX: N20.0 Calculus of kidney (principal); N20.1 Calculus of ureter; Z46.6 Encounter for fitting and adjustment of urinary device; N13.30 Unspecified hydronephrosis; N39.0 Urinary tract infection, site not specified; E11.22 Type 2 diabetes mellitus with diabetic chronic kidney disease; N18.9 Chronic kidney disease, unspecified; E66.9 Obesity, unspecified; R35.1 Nocturia; N32.81 Overactive bladder; N95.2 Postmenopausal atrophic vaginitis; I48.91 Unspecified atrial fibrillation; I25.810 Atherosclerosis of coronary artery bypass graft(s) without angina pectoris; E78.5 Hyperlipidemia, unspecified; E03.9 Hypothyroidism, unspecified; Z01.812 Encounter for preprocedural laboratory examination; Z20.828 Contact with and (suspected) exposure to other viral communicable diseases; Z79.82 Long term (current) use of aspirin; Z79.84 Long term (current) use of oral hypoglycemic drugs; Z95.1 Presence of aortocoronary bypass graft; Z87.891 Personal history of nicotine dependence
CPT/HCPCS: 36415; 50590; 52332; 80048; 82948; 83970; 84550; 85025; 87086; 87186; 93005; C1758; C1769; C2617 ×2; J1580; J2001; J2405; J2704; Q9967; U0002

== ENCOUNTER 2020-03-22 21:39 | Emergency (ER) | payer MEDICARE, OTHER ==
[~2020-03-22] VITALS: Ht 165.1 cm; Wt 88.0 kg
[~2020-03-22 21:39] MED LIST changes: -B&O 60MG R/S 60 MG SUPP PR ONE; -GENTAMICIN 80MG/NS 100 ML 200 ML IV ONE; -IOPAMIDOL 300MG/ML 50ML INFUS..BTL IV ONE; -LIDOCAINE HCL 2% LOCAL INJ 5 ML SDV VIAL INJ ONE; -ONDANSETRON HCL INJ 2MG/ML 2ML 2 MG/ML VIAL ONE; -PROPOFOL IV EMULSION 10 MG/ML 20 ML VIAL ONE; -SEVOFLURANE INHAL SOLN 250 ML PEN BTL ONE
[2020-03-22] MEDS ORDERED: SODIUM CHLORIDE 0.9% 1000ML 1,000 ML IV SCH (22:00)
[2020-03-22] MEDS ORDERED: CEFTRIAXONE SOD 1 GM/NS 50 ML 50 ML IV SCH (22:00)
[2020-03-22] MEDS ORDERED: PIPER-TAZ 3.375 GM 50 ML IV STA (22:06)
[2020-03-22 22:18] LABS: BASOPHILS # (AUTO) 0.1 (0.0-0.1); BASOPHILS % 0.3 % (0.0-1.0); EOSINOPHILS % 0.1 % (0.0-6.0); LYMPHOCYTES # (AUTO) 2.2 (1.0-3.2); LYMPHOCYTES % 12.5 % (18.0-39.1); MEAN CORPUSCULAR HEMOGLOBIN 23.7 pg (28-32); MEAN CORPUSCULAR VOLUME 79.1 fL (81-99); MONOCYTES # (AUTO) 1.2 (0.2-0.8); MONOCYTES % 6.6 % (4.4-11.3); NEUTROPHILS # (AUTO) 14.1 (2.1-6.9); NEUTROPHILS % 78.9 % (38.7-80.0); PLATELET COUNT 637 x10e3/uL (140-360); RED BLOOD COUNT 5.06 x10e6/uL (3.6-5.1); RED CELL DISTRIBUTION WIDTH 19.8 % (11.7-14.4)
[2020-03-22] MEDS ORDERED: ACETAMINOPHEN 650 MG SUPP PR ONE ×2 (22:21→22:30)
[2020-03-22] MEDS ORDERED: ACETAMINOPHEN 325 MG SUPP ONE (22:21)
[2020-03-22 22:26] LABS: BILIRUBIN,URINE NEGATIVE (NEGATIVE); CLARITY,URINE CLOUDY (CLEAR); COLOR,URINE YELLOW (YELLOW); KETONES,URINE NEGATIVE (NEGATIVE); LEUKOCYTE ESTERASE ,URINE LARGE (NEGATIVE); NITRITE,URINE NEGATIVE (NEGATIVE); PROTEIN,URINE DIPSTICK >=300 (NEGATIVE); URINE UROBILINOGEN 0.2 mg/dL (0.2 - 1)
[2020-03-22 22:36] LABS: ALBUMIN 2.3 g/dL (3.5-5.0); ALBUMIN/GLOBULIN RATIO 0.5 (0.8-2.0); ANION GAP 15.9 mmol/L (8-16); BACTERIA,URINE FEW /HPF; CALCIUM 10.5 mg/dL (8.4-10.2); CREATININE, SERUM 1.25 mg/dL (0.57-1.11); EPITHELIAL CELLS,URINE FEW /LPF; POTASSIUM 4.9 mmol/L (3.5-5.1); WBC,URINE (MAN) >50 /HPF (0-5)
[2020-03-22] MEDS ORDERED: SODIUM CHLORIDE 0.9% 1000ML 1,000 ML IV ONE ×3 (23:00)
[2020-03-23] MEDS ORDERED: SODIUM CHLORIDE 0.9% 50ML 50 ML ONE (05:49)
[2020-03-23] MEDS ORDERED: IOPAMIDOL 370 MG/ML 200 ML INFUS..BTL INJ ONE (05:49)
== END 2020-03-23 01:09 | disposition other institution (70) ==
LOC: ER 21:52
DX: A41.9 Sepsis, unspecified organism (principal); N12 Tubulo-interstitial nephritis, not specified as acute or chronic; R50.9 Fever, unspecified; E11.65 Type 2 diabetes mellitus with hyperglycemia; Z20.828 Contact with and (suspected) exposure to other viral communicable diseases; E78.5 Hyperlipidemia, unspecified; E03.9 Hypothyroidism, unspecified; I25.10 Atherosclerotic heart disease of native coronary artery without angina pectoris; K21.9 Gastro-esophageal reflux disease without esophagitis; Z95.1 Presence of aortocoronary bypass graft
CPT/HCPCS: 36415; 51700; 74177; 80053; 81001; 83605; 85025; 87040; 87071; 87205; 93005; 99285; J0696; J7030; Q9967; U0002

== ENCOUNTER 2020-04-07 06:06 | Observation (INO) | payer MEDICARE ==
[~2020-04-07] VITALS: Ht 167.6 cm; Wt 75.3 kg
[~2020-04-07 06:06] MED LIST changes: +AMOXICILLIN250 MG PO; +METOPROLOL SUCC25 MG PO; +NYSTATIN15 GM TOP
[2020-04-07] MEDS ORDERED: GENTAMICIN 80MG/NS 100 ML 200 ML IV ONE (07:29)
[2020-04-07] MEDS ORDERED: B&O 60MG R/S 60 MG SUPP PR ONE (08:10)
[2020-04-07] MEDS ORDERED: IOPAMIDOL 300MG/ML 50ML INFUS..BTL IV ONE (08:10)
[2020-04-07] MEDS ORDERED: ONDANSETRON HCL INJ 2MG/ML 2ML 2 MG/ML VIAL IV PRN (09:00)
[2020-04-07] MEDS ORDERED: DIPHENHYDRAMINE HCL 25 MG CAP PO PRN (09:00)
[2020-04-07] MEDS ORDERED: DOCUSATE SODIUM 100 MG CAP PO SCH (09:00)
[2020-04-07] MEDS ORDERED: ACETAMINOPHEN/CODEINE 300MG - 30MG TAB PO PRN (09:00)
[2020-04-07] MEDS ORDERED: SODIUM CHLORIDE 0.9% 1000ML 1,000 ML ONE (11:48)
[2020-04-07] MEDS ORDERED: ONDANSETRON HCL INJ 2MG/ML 2ML 2 MG/ML VIAL ONE (12:35)
[2020-04-07] MEDS ORDERED: SEVOFLURANE INHAL SOLN 250 ML PEN BTL ONE (12:35)
[2020-04-07] MEDS ORDERED: PHENYLEPHRINE HCL 1% 10 MG/ML VIAL ONE (12:35)
[2020-04-07] MEDS ORDERED: PROPOFOL IV EMULSION 10 MG/ML 20 ML VIAL ONE (12:35)
[2020-04-07] MEDS ORDERED: LIDOCAINE HCL 2% LOCAL INJ 5 ML SDV VIAL INJ ONE (12:35)
[2020-04-07 12:46] LABS: BASOPHILS # (AUTO) 0.1 (0.0-0.1); BASOPHILS % 0.7 % (0.0-1.0); EOSINOPHILS % 0.1 % (0.0-6.0); HEMATOCRIT 28.1 % (34.2-44.1); HEMOGLOBIN 8.4 g/dL (12.0-16.0); LYMPHOCYTES # (AUTO) 1.7 (1.0-3.2); LYMPHOCYTES % 11.7 % (18.0-39.1); MEAN CORPUSCULAR HEMOGLOBIN 24.9 pg (28-32); MEAN CORPUSCULAR HGB CONC 29.9 g/dL (31-35); MEAN CORPUSCULAR VOLUME 83.1 fL (81-99); MONOCYTES # (AUTO) 0.9 (0.2-0.8); MONOCYTES % 5.9 % (4.4-11.3); NEUTROPHILS # (AUTO) 11.8 (2.1-6.9); NEUTROPHILS % 80.4 % (38.7-80.0); PLATELET COUNT 357 x10e3/uL (140-360); RED BLOOD COUNT 3.38 x10e6/uL (3.6-5.1); RED CELL DISTRIBUTION WIDTH 21.1 % (11.7-14.4)
[2020-04-07] MEDS ORDERED: SODIUM CHLORIDE 0.9% 1000ML 1,000 ML IV ONE (13:00)
[2020-04-07 13:13] LABS: ALANINE AMINOTRANSFERASE 6 IU/L (0-55); ALBUMIN 1.5 g/dL (3.5-5.0); ALBUMIN/GLOBULIN RATIO 0.3 (0.8-2.0); ALKALINE PHOSPHATASE 69 IU/L (40-150); ANION GAP 13.9 mmol/L (8-16); BLOOD UREA NITROGEN 13 mg/dL (7-26); BUN/CREATININE RATIO 16 (6-25); CALCIUM 8.8 mg/dL (8.4-10.2); CARBON DIOXIDE 19 mmol/L (22-29); CHLORIDE 109 mmol/L (98-107); EST GLOMERULAR FILTRATION RATE > 60 ML/MIN (60-); GLUCOSE 115 mg/dL (74-118); POTASSIUM 3.9 mmol/L (3.5-5.1); SODIUM 138 mmol/L (136-145)
[2020-04-07] MEDS ORDERED: SODIUM CHLORIDE 0.9% 1000ML 1,000 ML IV SCH (14:00)
[2020-04-07 14:22] VITALS: BP 103/65
[2020-04-07 15:11] VITALS: BP 103/54
[2020-04-07] MEDS: NITROFURANTOIN MACROCRYSTALS 100 MG CAP PO SCH (17:13)
[2020-04-07] MEDS: DOCUSATE SODIUM 100 MG CAP PO SCH (17:13)
[2020-04-07 20:00] VITALS: BP 95/68
[2020-04-07 20:44] VITALS: BP 95/68
[2020-04-07] MEDS: MIDODRINE 2.5 MG TAB PO SCH (22:23)
[2020-04-08] VITALS: BP 98/57
[2020-04-08 04:00] VITALS: BP 112/91
[2020-04-08] MEDS ORDERED: LEVOTHYROXINE SODIUM 100 MCG TAB PO SCH (06:00)
[2020-04-08 08:00] VITALS: BP 115/70
[2020-04-08] MEDS ORDERED: GABAPENTIN 100 MG CAP PO SCH (09:00)
[2020-04-08] MEDS ORDERED: TAMSULOSIN HCL 0.4 MG CAP PO SCH (09:00)
[2020-04-08] MEDS ORDERED: MONTELUKAST SODIUM 10 MG TAB PO SCH (09:00)
[2020-04-08] MEDS ORDERED: SERTRALINE HCL 50 MG TAB PO SCH (09:00)
[2020-04-08 09:04] LABS: BASOPHILS # (AUTO) 0.1 (0.0-0.1); BASOPHILS % 0.5 % (0.0-1.0); EOSINOPHILS % 0.2 % (0.0-6.0); HEMATOCRIT 31.1 % (34.2-44.1); HEMOGLOBIN 9.1 g/dL (12.0-16.0); LYMPHOCYTES # (AUTO) 1.8 (1.0-3.2); LYMPHOCYTES % 10.8 % (18.0-39.1); MEAN CORPUSCULAR HEMOGLOBIN 24.7 pg (28-32); MEAN CORPUSCULAR HGB CONC 29.3 g/dL (31-35); MEAN CORPUSCULAR VOLUME 84.3 fL (81-99); MONOCYTES # (AUTO) 1.1 (0.2-0.8); MONOCYTES % 6.3 % (4.4-11.3); NEUTROPHILS # (AUTO) 13.6 (2.1-6.9); NEUTROPHILS % 81.2 % (38.7-80.0); PLATELET COUNT 351 x10e3/uL (140-360); RED BLOOD COUNT 3.69 x10e6/uL (3.6-5.1); RED CELL DISTRIBUTION WIDTH 21.1 % (11.7-14.4)
[2020-04-08 09:21] LABS: ANION GAP 13.1 mmol/L (8-16); BLOOD UREA NITROGEN 11 mg/dL (7-26); BUN/CREATININE RATIO 13 (6-25); CALCIUM 9.3 mg/dL (8.4-10.2); CARBON DIOXIDE 23 mmol/L (22-29); CHLORIDE 108 mmol/L (98-107); CREATININE, SERUM 0.85 mg/dL (0.57-1.11); EST GLOMERULAR FILTRATION RATE > 60 ML/MIN (60-); GLUCOSE 88 mg/dL (74-118); POTASSIUM 4.1 mmol/L (3.5-5.1); SODIUM 140 mmol/L (136-145)
[2020-04-08] MEDS: MIDODRINE 2.5 MG TAB PO SCH (10:06)
[2020-04-08] MEDS: DOCUSATE SODIUM 100 MG CAP PO SCH (10:07)
[2020-04-08] MEDS: NITROFURANTOIN MACROCRYSTALS 100 MG CAP PO SCH (10:07)
[2020-04-08 12:04] VITALS: BP 103/57
== END 2020-04-08 13:45 ==
LOC: OR 06:06 → PACU V 08:50 → MED/SURG 13:48
PROVIDERS: ADMIT Internal Medicine; ATTEND Internal Medicine
DX: N20.0 Calculus of kidney (principal); I10 Essential (primary) hypertension; I25.10 Atherosclerotic heart disease of native coronary artery without angina pectoris; Z95.1 Presence of aortocoronary bypass graft; E78.5 Hyperlipidemia, unspecified; Z20.828 Contact with and (suspected) exposure to other viral communicable diseases
CPT/HCPCS: 36415 ×2; 50590; 51700; 74018; 80048; 80053; 82948 ×2; 85025 ×2; 87086; 87186; 93005; G0378 ×2; J1580; J2001; J2370; J2405; J2704; J7030; U0002